=== PATIENT | male | born 1985 | race Hispanic/Latino ===

== ENCOUNTER 2022-06-15 20:59 | Emergency (ER) | payer OTHER ==
[2022-06-16] MEDS ORDERED: Ketorolac Tromethamine 30 MG/ML VIAL ONE (00:14)
[2022-06-16] MEDS ORDERED: Triple Antibiotic Oint 1 GM Packet ONE (00:26)
[2022-06-16] MEDS ORDERED: Amoxicillin/Potassium Clav 875 MG TAB ONE (01:26)
== END 2022-06-16 01:28 | disposition home or self-care (01) ==
LOC: CSHERS 20:59
DX: S61.251A Open bite of left index finger without damage to nail, initial encounter (principal); S66.321A Laceration of extensor muscle, fascia and tendon of left index finger at wrist and hand level, initial encounter; W54.0XXA Bitten by dog, initial encounter
CPT/HCPCS: 96372; J1885